=== PATIENT | female | born 1940 | race Caucasian/White ===

== ENCOUNTER 2023-01-12 05:48 | Day surgery (SDC) | payer MEDICARE, OTHER, SELFPAY ==
[2023-01-12 06:25] VITALS: BP 142/95; PULSE 73; RESP 16; TEMP 36.6; O2SAT 97; BMI 24.7
[2023-01-12] MEDS: Lactated Ringers 1,000 ML 15 ML IV (06:28)
--- NOTE | 2023-01-12 07:10 | PCM.HP.BLA ---
History and Physical Date of Admission: 01/12/23 [facility] [address] [place] [address] OFFICE VISIT Date of Service:? 11/18/22 MR#: [id number] Acct: [id number] Name:FRANCISCO CAO Rep #: [id number] : 1940 ? ? Provider: Dr. Donato Rowley DO Age/Sex:? 82/F ? ? Location[place] [facility] [place] Status: Signed Intake Vital Signs ? 11/19/2307:56 Height 5 ft 3 in Weight: 145 lb BMI 25.7 Intake Visit Reasons:?LEFT HAND Chief Complaint: left hand Accompanied by: Self Is patient in pain?: No Allergies No Known Allergies Allergy (Unverified 11/18/22 08:56) Medications calcium citrate 250 mg PO DAILY 11/18/22 [History Confirmed 11/18/22] cyanocobalamin (vitamin B-12) 1,000 mcg capsule 1,000 mcg PO DAILY 11/18/22 [History Confirmed 11/18/22] ibuprofen 200 mg capsule 200 mg PO Q6H PRN 11/18/22 [History Confirmed 11/18/22] latanoprost 0.005 % eye drops ml ophthalmic (eye) 11/18/22 [History Confirmed 11/18/22] lisinopril 10 mg tablet tablet PO 11/18/22 [History Confirmed 11/18/22] omega 6-xao-vxj-fish oil 60 mg-90 mg-500 mg capsule (Fish Oil) 1 cap PO DAILY 11/18/22 [History Confirmed 11/18/22] prednisolone acetate 1 % eye drops,suspension ml ophthalmic (eye) 11/18/22 [History Confirmed 11/18/22] PFSH Medical History?(Updated 11/18/22 @ 09:[address] Donato Rowley, DO) Breast cancer History of cardiac aneurysm Surgical History?(Updated 11/18/22 @ 09:16 by Micaela Boone) History of lumbar fusion Hx of bilateral cataract extraction Hx of foot surgery Hx of left mastectomy Social History?(Updated 11/18/22 @ 09:16 by Micaela Boone) Smoking Status:? Never smoker alcohol intake:? never HPI LEFT HAND Details: Parts of this documentation were recorded by a scribe, this documentation accurately reflects the service provided and the decisions made by me, Dr. Donato Rowley, DO 11/18/22 5130. FRANCISCO BUSCH is a 82 year old F NEW patient here today for? left hand pain and tingling that she has been having for about 6 months but has become very bothersome. She states that she has difficulty shuffling cards and holding things. She states that the pain into her left hand keeps her awake at night. She states that pain and tingling is worse at night. She has tingling into the 2nd, 3rd and 4th digits of the left hand. She just c/o pain over hte left CMC joint with 1st digit ROM. She does have some finger stiffness as well. Denies any night bracing but she did try wearing a wrist brace during the day which wasnt helpful. 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 She denies any radiating pain on the left arm from the neck into the hand. States that the left sided pain starts at the elbow and goes into the hand. Denies any hx of cervical surgery or injections. SHe has an MRI and Xray of the cervical spine on a disc today. She has also had an EMG completed which is here for review. Ortho Exam General General: Yes no acute distress Neurologic: Yes alert and Yes oriented x3 Psychologic: Yes reasonable and appropriate Left Wrist/Hand Left Wrist: Yes Durken's Test, Yes Phalen's, Yes CMC Grind and Yes Thenar Atrophy; No Tinel's Spine Details: decreased cervical extension without reproduction of pain cervical rotation tot he right causes tingling down right arm positive spurlings SPINE TESTING CERVICAL THORACIC LUMBAR Musculoskeletal Strength 0=absent - 5=normal Head: Normocephalic Atraumatic Chest: symmetrical rise, non-labored breathing, no audible wheeze Abdomen: no guarding, non-rigid Supplemental Info 11/18/2022 x-ray left hand: Advanced first CMC joint arthrosis.? Osteopenia diffusely. 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 08/04/2022 MRI cervical spine: C4-C5 moderate spondylosis and stenosis foraminal narrowing bilaterally, C5-C6 moderate uncovertebral hypertrophy moderate spondylosis right foraminal stenosis Coding Level of Care Code Off vis,new,level 3 Diagnoses Left carpal tunnel syndrome? G56.02 Cervical spondylosis? 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 ? ? Orders: Orders Hand Min 3 Views Today M79.645 - Pain in left finger(s) ? Plan Obtained X-rays of patient's? left hand. Personally reviewed x-rays. There is no obvious fracture, dislocation, or lucency noted. Also reviewed patients MRI of the cervical spine. Patient educated that she has multiple problems which include left carpal tunnel syndrome along with cervical DDD and spondylosis which can cause overlapping symptoms in the left upper extremity .she also has left CMC joint arthritis. Discussed all treatment options with the patient and she wishes to proceed with only the left carpal tunnel release at this time. Reviewed the pre-operative plans with the patient. Risks and benefits of the procedure were fully explained, including but not limited to infection, neurovascular injury, continued pain, arthritis, stiffness, need for further surgery, re-injury, DVT, PE, general risks of anesthesia, incisional hypersensitivity and pillar pain, continued symptoms and loss of limb or life. The patient understands all the risks and does wish to proceed with written consent for left carpal tunnel release. She states that she will hold off on the left CMC joint injection until after the CTR. She also reports that she hasnt seen a spine surgeon for the cervical spine and she doesnt wish to have any surgery on her cervical spine. Also encouraged patient to wear her wrist brace at night while she sleeps.?NO BLOOD PRODUCTS. Medical clearance d/t age. Follow up 2 weeks post op or sooner if pain, swelling, numbness or associated symptoms, or concerns develop.? All questions answered. Patient in agreement of plan. 11/18/22 0953 <Electronically signed by Donato Rowley DO> Date Donato Baesharon SHAH Yannicktalatdora Signature: Date (if applicable) ?I have examined the patient and the H&P has been reviewed. There are no clinical changes since date of exam.
[2023-01-12] MEDS: Cefazolin 2 GM in 0.9% Normal Saline 100 ML IV (07:30)
[2023-01-12] MEDS: Lidocaine 2% /Epi 1:100 (20ml) 20 ML VIAL (07:39)
--- NOTE | 2023-01-12 07:47 | OP.PCM_ITS ---
Operative Report Date of Procedure: 01/12/23 Preoperative diagnosis; left carpal tunnel syndrome Postoperative diagnosis; same Procedure: Left open carpal tunnel release Anesthesia: Local with MAC Tourniquet time; 10 minutes 250 mm Hg Complications: None Indication for procedure; This is a 82-year-old female with long-standing sym ptoms consistent with carpal tunnel syndrome the patient did have electrodiagnostic evidence of this and has failed conservative treatment. Risks benefits and alternatives were reviewed including risks of bleeding infection nerve artery tissue damage need for further surgery and continued pain and symptoms, hypersensitivity to scar and Pillar pain. Procedure; The patient was met in the preoperative holding area the operative extremity was identified by both patient and physician and was marked the patient was met by anesthesia and brought back to the operating room and transferred to the operating table in the supine position. Anesthesia was started. A well-padded tourniquet was placed on the operative upper extremity. The patient was prepped and draped in the usual sterile fashion. A timeout was called to ensure the proper patient procedure and extremity were being contemplated. 0.5 percent lidocaine with epinephrine was injected into the incisional area. An Esmarch was used to exsanguinate the extremity. The tourniquet was inflated to 250 mmHg. A midline incision was made with a 15 blade scalpel between the thenar and hypothenar eminence. This was carried down through the skin and subcutaneous tissue. Koby retractors were then used, a deep blade scalpel was used to make a deep incision in the palmar aponeurosis. The koby retractors were then placed deep to this and the transverse carpal ligament was identified a perforation was made with a scalpel and a Littler scissors were used to complete the release of the transverse carpal ligament distally under direct visualization with the tips facing ulnarly until the perivascular fat was reached. Then turning our attention proximally using a tension slide technique the proximal extent of the transverse carpal ligament was released . There was noted to be hypertrophy of the transverse carpal ligament without other findings. The wound was thoroughly irrigated and was closed with 4-0 nylon vertical mattress stitches. Dressing was applied in the form of xeroform 4 x 4, web roll and an maximino wrap. Tourniquet was let down there is no intraoperative complications patient tolerated the procedure well and was transferred to the PACU. All counts were correct.
--- NOTE | 2023-01-12 07:48 | EX.PCM.DISCH ---
Discharge Instructions Diet Discharge Diet: No restrictions Dressing / Incision Call your doctor if you observe: Shortness of breath and Chest pain Additional Dressing/Incision Instructions:: Ice and elevate operative extremity next 72 hours. Keep dressing on clean and dry for 48 hours then may remove and allow warm soapy water to rinse over incision but do not submerge until sutures are out. Then apply bandaid over incision and change daily. encourage finger range of motion. Not lift more than 1/2 pound. Minimize narcotic use only as needed and directed, may use OTC NSAID and Tylenol to supplement/substitute for pain control. Follow Up Care Please Follow Up With: Donato Rowley DO When: 2 weeks Test Results: Test results from this visit will be discussed in further detail at your follow-up appointment, if applicable. Discharge Plan Admission Primary Reason for Your Visit: Left carpal tunnel release Attending Provider: Donato Rowley Primary Care Provider: Keya Laboy NP Discharge Orders/Prescriptions Prescriptions: New oxycodone 5 mg tablet 2.5 - 5 mg PO Q4H PRN (Reason: pain) 3 Days Qty: 10 0RF No Action latanoprost 0.005 % drops 1 drp ophthalmic (eye) QHS lisinopril 10 mg tablet 10 mg PO QHS ibuprofen 200 mg capsule 200 mg PO Q6H PRN (Reason: Pain) omega 9-cqe-dea-fish oil [Fish Oil] 60-90-500 mg capsule 1 cap PO DAILY calcium citrate 250 mg calcium tablet 500 mg PO DAILY vitamin B complex [Super B Complex] Capsule 1 cap PO DAILY Referrals / Follow Up: Keya Laboy RESEARCH PSYCHOLOGIST, RESEARCH PSYCHOLOGIST-C [Primary Care Provider] - Disposition Discharge Orders: Discharge Patient (Routine); Ordered 01/12/23 Ordered By: Dr. Donato Rowley
[2023-01-12 08:00] VITALS: BP 142/95; BP 150/77; PULSE 75; RESP 18; TEMP 36.2; O2SAT 94
[2023-01-12 08:05] VITALS: BP 133/73; BP 142/95; PULSE 69; RESP 18; O2SAT 94
[2023-01-12 08:10] VITALS: BP 142/95; BP 154/77; PULSE 59; RESP 18; O2SAT 94
[2023-01-12 08:15] VITALS: BP 139/67; BP 142/95; PULSE 60; RESP 18; TEMP 36.1; O2SAT 94
[2023-01-12 08:52] VITALS: BP 142/95
== END 2023-01-12 09:16 | disposition home or self-care (01) ==
LOC: SDC 05:51 → AC 05:52
PROVIDERS: PCP Nurse Practitioner Primary Care; Referring Provider Orthopaedic Surgery; Visit Provider Orthopaedic Surgery
PROC: (CPT 64721; principal; 2023-01-12 07:15)
DX: G56.02 Carpal tunnel syndrome, left upper limb (principal); M47.812 Spondylosis without myelopathy or radiculopathy, cervical region; M43.6 Torticollis; Z85.3 Personal history of malignant neoplasm of breast; M18.9 Osteoarthritis of first carpometacarpal joint, unspecified; I10 Essential (primary) hypertension; Z98.1 Arthrodesis status; Z90.12 Acquired absence of left breast and nipple
CPT/HCPCS: 64721; 01810; J7120; J2405